=== PATIENT | female | born 1980 | race Caucasian/White ===

== ENCOUNTER 2016-10-20 10:40 | Emergency (ER) | payer OTHER ==
[2016-10-20 10:47] VITALS: BMI 26.5
[2016-10-20] MEDS ORDERED: ACETAMINOPHEN 1000 MG/100 ML VIAL (NON FORMULARY) IVPB ONE (11:01)
[2016-10-20] MEDS ORDERED: SODIUM CHLORIDE 1,000 ML IV STA (11:01)
--- NOTE | 2016-10-20 11:04 | PDOC ---
*Physical Exam - Vital Signs Last Vital Signs Temp Pulse Resp BP Pulse Ox 99.1 F 102 H 20 127/80 100 10/20/16 10:41 10/20/16 10:41 10/20/16 10:41 10/20/16 10:41 10/20/16 10:41
[2016-10-20] MEDS ORDERED: ACETAMINOPHEN INJECTION 100 ML IVPB ONE (11:06)
--- NOTE | 2016-10-20 11:11 | PDOC ---
History of Present Illness - General Chief Complaint: Pain Stated Complaint: HEADACHE, ABD PAIN Time Seen by Provider: 10/20/16 10:55 History Source: Patient Exam Limitations: No Limitations - History of Present Illness Travel History: No Initial Comments: 10/20/16 11:51 36-year-old female presents to the ED with complaints of mild periumbilical cramping associated with intermittent diarrhea intermittent nausea and now with the generalized headache. Patient denies dysuria, recent constipation, recent travel or recent illness. Patient does state feels fatigued and generalized chills. Patient states took nothing for the above and decided come to the ER today although her abdominal pain has significantly subsided along with her diarrhea. Patient also denies medical history recent change in diet, recent change in weight. Timing/Duration: reports: constant Quality: reports: mild, cramping Abdominal Pain Onset Location: reports: periumbilical Pain Radiation: reports: no radiation Activities at Onset: reports: none Aggravating Factors: improves with: None Alleviating Factors: improves with: None Past History - Travel Traveled outside of the country in the last 30 days: No Close contact w/someone who was outside of country & ill: No - Past Medical History Allergies/Adverse Reactions: Allergies Allergy/AdvReac Type Severity Reaction Status Date / Time No Known Allergies Allergy Verified 10/20/16 10:44 Home Medications: Ambulatory Orders NK [No Known Home Medication] 09/27/15 Sulfamethoxazole/Trimethoprim [Bactrim *Ds*] 1 each PO BID #14 tablet 09/27/15 Other medical history: NONE - Psycho/Social/Smoking Cessation Hx Anxiety: No Suicidal Ideation: No Smoking History: Never smoked Hx Alcohol Use: No Drug/Substance Use Hx: No Substance Use Type: None Patient Lives Alone: No Lives with/in: spouse/SO Review of Systems - Review of Systems Able to Perform ROS?: No Constitutional: Yes: Chills, Weakness HEENTM: No: Symptoms Reported Respiratory: No: Symptoms reported Cardiac (ROS): No: Symptoms Reported ABD/GI: Yes: Diarrhea, Nausea, Abdominal cramping. No: Vomiting : No: Symptoms Reported Musculoskeletal: No: Symptoms Reported Integumentary: No: Symptoms Reported Neurological: Yes: Headache *Physical Exam - Vital Signs Last Vital Signs Temp Pulse Resp BP Pulse Ox 99.1 F 102 H 20 127/80 100 10/20/16 10:41 10/20/16 10:41 10/20/16 10:41 10/20/16 10:41 10/20/16 10:41 - Physical Exam General Appearance: Yes: Nourished, Appropriately Dressed. No: Apparent Distress HEENT: positive: ADAN, TMs Normal, Pharynx Normal. negative: Pale Conjunctivae Neck: positive: Supple Respiratory/Chest: positive: Lungs Clear, Normal Breath Sounds. negative: Respiratory Distress, Accessory Muscle Use Cardiovascular: positive: Regular Rhythm, Tachycardia. negative: Murmur Gastrointestinal/Abdominal: positive: Normal Bowel Sounds, Soft. negative: Distended, Guarding, Rebound, Tenderness Musculoskeletal: negative: CVA Tenderness Extremity: positive: Normal Capillary Refill. negative: Pedal Edema Integumentary: positive: Normal Color, Warm, Moist Neurologic: positive: Motor Strength 5/5 (ambulatory) ED Treatment Course - LABORATORY CBC & Chemistry Diagram: 10/20/16 11:00 10/20/16 11:00 Medical Decision Making - Medical Decision Making 10/20/16 11:34 Patient with no past medical history presenting with intermittent diarrhea nausea and abdominal cramping now associated with a frontal headache. Patient arrives with a temperature of 99.2 and heart rate of 102. Patient exam had no acute findings. Patient ordered for labs, urine, IV fluids, IV Tylenol and will reevaluate shortly. 10/20/16 12:15 Laboratory Tests 10/20/16 10/20/16 10/20/16 11:00 11:00 11:45 WBC 9.1 Hgb 13.2 Hct 38.8 Plt Count 174 Neutrophils % 77.4 Sodium 137 Potassium 3.6 Chloride 105 Carbon Dioxide 26 Anion Gap 6 L BUN 6 L Creatinine 0.7 Random Glucose 88 Calcium 8.7 Total Bilirubin 0.6 AST 11 L ALT 31 Lipase 104 Urine Ketones Trace H Urine Blood 1+ H Ur Leukocyte Esterase 1+ H Urine WBC 6 10/20/16 12:17 UPregnancy negative. Patient states feeling much better. Repeat vital stable. Will discharge with Macrobid. *DC/Admit/Observation/Transfer Diagnosis at time of Disposition: Urinary tract infection Qualifiers: Urinary tract infection type: acute cystitis Hematuria presence: without hematuria Qualified Code(s): N30.00 - Acute cystitis without hematuria - Discharge Dispostion Disposition: HOME Condition at time of disposition: Improved - Referrals Referrals: Earlene Garcia MD [Primary Care Provider] - - Patient Instructions Printed Discharge Instructions: DI for Urinary Tract Infection (UTI) Additional Instructions: Please drink plenty of fluids and take antibiotics starting today. May take Motrin or Tylenol for discomfort and/or fever. Please return to ED if symptoms worsen. Otherwise follow-up with your primary care physician.
[2016-10-20 11:26] LABS: BASOPHIL 0.5 % (0-2.0); EOSINOPHIL 0.4 % (0-4.5); MCH 29.5 pg (25.7-33.7); MCHC 33.9 g/dl (32.0-36.0); MEAN PLT VOLUME 8.6 fl (7.5-11.1); NEUTROPHILS 77.4 % (42.8-82.8); PLATELET COUNT 174 K/MM3 (134-434); WHITE BLOOD COUNT 9.1 K/mm3 (4.0-10.0)
[2016-10-20 11:52] LABS: ALBUMIN 3.8 g/dl (3.4-5.0); ALK PHOS 54 U/L (45-117); ANION GAP 6 (8-16); BILIRUBIN,TOTAL 0.6 mg/dL (0.2-1.0); CALCIUM 8.7 mg/dL (8.5-10.1); CO2 26 mmol/L (21-32); CREATININE 0.7 mg/dL (0.55-1.02); GLUCOSE,RANDOM 88 mg/dL (74-106); SGOT/AST 11 U/L (15-37); SGPT/ALT 31 U/L (12-78); TOT PROT 6.7 g/dl (6.4-8.2)
[2016-10-20 11:58] LABS: URINE APPEARANCE CLOUDY; URINE BILIRUBIN NEGATIVE (NEGATIVE); URINE BLOOD 1+ (NEGATIVE); URINE COLOR LTYELLOW; URINE GLUCOSE (UA) NEGATIVE (NEGATIVE); URINE KETONE TRACE (NEGATIVE); URINE NITRITE NEGATIVE (NEGATIVE); URINE PROTEIN NEGATIVE (NEGATIVE); URINE UROBILINOGEN NEGATIVE mg/dL (0.2-1.0)
[2016-10-20 12:02] LABS: URINE LEUK ESTERASE 1+ (NEGATIVE)
[2016-10-20 12:06] LABS: URINE BACTERIA FEW /hpf (NONE SEEN); URINE MUCUS RARE; URINE RBC 1 /hpf (0-3); URINE WBC 6 /hpf (3-5)
[2016-10-20 12:29] VITALS: BP 104/63; PULSE 80; TEMP 98.2
== END 2016-10-20 12:29 | disposition home or self-care (01) ==
LOC: JER 10:40
PROC: 3E033NZ Introduction of Analgesics, Hypnotics, Sedatives into Peripheral Vein, Percutaneous Approach (ICD-10-PCS; principal; 2016-10-20)
DX: N39.0 Urinary tract infection, site not specified (principal); R10.33 Periumbilical pain
CPT/HCPCS: 36415; 80053; 81003; 81015; 83690; 84703; 85025; 87077; 87086; 96374; 99282-25

== ENCOUNTER 2020-06-12 16:04 | Emergency (ER) | payer OTHER ==
[2020-06-12 16:17] VITALS: BP 143/98; PULSE 77; TEMP 98.5; BMI 29.0
[2020-06-12] MEDS ORDERED: ACETAMINOPHEN 500 MG TABLET (FP) PO ONE (16:57)
[2020-06-12] MEDS ORDERED: ACETAMINOPHEN 500 MG TABLET (FP) ONE (16:59)
[2020-06-12] MEDS ORDERED: KETOROLAC TROMETHAMINE 30 MG/1 ML VIAL IM ONE (20:14)
[2020-06-12] MEDS ORDERED: KETOROLAC TROMETHAMINE 30 MG/1 ML VIAL ONE (20:25)
== END 2020-06-12 20:35 | disposition home or self-care (01) ==
LOC: JER 16:04 → JERFT 16:04
PROC: 3E0233Z Introduction of Anti-inflammatory into Muscle, Percutaneous Approach (ICD-10-PCS; principal; 2020-06-12)
DX: G50.1 Atypical facial pain (principal); G44.319 Acute post-traumatic headache, not intractable
CPT/HCPCS: 70450-TC; 70486-TC; 72125-TC; 84703; 99285-25

== ENCOUNTER 2020-12-12 00:23 | Emergency (ER) | payer OTHER ==
[2020-12-12 00:40] VITALS: BMI 26.5
[2020-12-12 01:18] LABS: PH,URINE 7.5 (5.0-8.0); URINE APPEARANCE CLEAR; URINE BILIRUBIN NEGATIVE (NEGATIVE); URINE COLOR YELLOW; URINE GLUCOSE (UA) NEGATIVE (NEGATIVE); URINE KETONE NEGATIVE (NEGATIVE); URINE LEUK ESTERASE NEGATIVE (NEGATIVE); URINE NITRITE NEGATIVE (NEGATIVE); URINE PROTEIN NEGATIVE (NEGATIVE)
[2020-12-12 01:20] LABS: HCG,QUALITATIVE URINE Negative
[2020-12-12] MEDS ORDERED: ACETAMINOPHEN 500 MG TABLET (FP) PO ONE (01:36)
[2020-12-12] MEDS ORDERED: ACETAMINOPHEN 325 MG TABLET (FP) ONE (02:10)
[2020-12-12 02:25] LABS: BASO % 0.9 % (0-2.0); EOS % 1.3 % (0-4.5); HEMATOCRIT 35.5 % (32.4-45.2); HEMOGLOBIN 12.6 GM/dL (10.7-15.3); MCH 30.9 pg (25.7-33.7); MCHC 35.5 g/dl (32.0-36.0); MEAN CELL VOLUME 87.1 fl (80-96); MEAN PLT VOLUME 8.3 fl (7.5-11.1); MONO % 7.7 % (3.8-10.2); NEUT % 54.1 % (42.8-82.8); PLATELET COUNT 212 10^3/uL (134-434); RBC 4.08 M/mm3 (3.60-5.2); RDW 12.9 % (11.6-15.6); WHITE BLOOD COUNT 6.4 K/mm3 (4.0-10.0)
[2020-12-12 03:23] LABS: ALBUMIN 3.8 g/dl (3.4-5.0); BILIRUBIN,TOTAL 0.5 mg/dL (0.2-1); BLOOD UREA NITROGEN 7.8 mg/dL (7-18); CALCIUM 8.7 mg/dL (8.5-10.1); CREATININE 0.6 mg/dL (0.55-1.3); TOT PROT 6.7 g/dl (6.4-8.2)
[2020-12-12 06:27] VITALS: BP 122/66; PULSE 61; TEMP 97.9
== END 2020-12-12 06:55 | disposition home or self-care (01) ==
LOC: JER 00:23
DX: N83.202 Unspecified ovarian cyst, left side (principal)
CPT/HCPCS: 36415; 74177-TC; 76830-TC; 80053; 81003; 84703; 85025; 99285-25

== ENCOUNTER 2022-05-15 18:23 | Emergency (ER) | payer OTHER ==
[2022-05-15 18:53] VITALS: BP 144/84; PULSE 80; RESP 18; TEMP 98.8; BMI 30.2
== END 2022-05-15 19:23 | disposition home or self-care (01) ==
LOC: JERFT 18:23 → JER 18:23 → JERFT 19:23
DX: H69.82 Other specified disorders of Eustachian tube, left ear (principal)
CPT/HCPCS: 99282-25

== ENCOUNTER 2024-04-28 06:15 | Emergency (ER) | payer OTHER ==
[2024-04-28 06:20] VITALS: BMI 32.3
[2024-04-28] MEDS ORDERED: AMOX TR/POT CLAV 875MG/125MG TABLETS (FP) ONE (08:00)
[2024-04-28] MEDS ORDERED: DIPHTH,PERTUSS(ACELL),TET 0.5 ML DISP.SYRIN IM ONE ×2 (08:02→08:22)
[2024-04-28] MEDS: DIPHTH,PERTUSS(ACELL),TET 0.5 ML DISP.SYRIN IM ONE (08:15)
[2024-04-28] MEDS: AMOX TR/POT CLAV 875MG/125MG TABLETS (FP) PO ONE (08:20)
[2024-04-28] MEDS ORDERED: AMPICILLIN NA/SULBACTAM NA 3 GM/100 ML BAG IVPB ONE (09:13)
[2024-04-28] MEDS: AMPICILLIN NA/SULBACTAM NA 3 GM in SODIUM CHLORIDE 100 ML IVPB ONE (09:37)
[2024-04-28 09:52] LABS: BASO % 0.7 % (0-2.0); HEMATOCRIT 28.5 % (32.4-45.2); HEMOGLOBIN 8.8 GM/dL (10.7-15.3); LYMPH % 30.9 % (8-40); MCHC 30.8 g/dl (32.0-36.0); MEAN CELL VOLUME 63.4 fl (80-96); MEAN PLT VOLUME 8.3 fl (7.5-11.1); MONO % 6.8 % (3.8-10.2); NEUT % 60.6 % (42.8-82.8); PLATELET COUNT 315 10^3/uL (134-434); RBC 4.49 M/mm3 (3.60-5.2); RDW 18.9 % (11.6-15.6); WHITE BLOOD COUNT 6.4 K/mm3 (4.0-10.0)
[2024-04-28 09:56] LABS: MCH 19.5 pg (25.7-33.7)
[2024-04-28 10:13] LABS: POTASSIUM 4.2 mmol/L (3.5-5.1)
[2024-04-28 10:17] LABS: ALBUMIN 3.9 g/dl (3.4-5.0)
[2024-04-28 10:18] LABS: BLOOD UREA NITROGEN 9.9 mg/dL (7-18)
[2024-04-28 10:21] LABS: CREATININE 0.5 mg/dL (0.55-1.3)
[2024-04-28 10:22] LABS: BILIRUBIN,TOTAL 0.3 mg/dL (0.2-1); TOT PROT 7.1 g/dl (6.4-8.2)
[2024-04-28 10:48] VITALS: RESP 20
[2024-04-28 11:12] LABS: ANISOCYTOSIS 2+
[2024-04-28] MEDS ORDERED: ACETAMINOPHEN 325 MG TABLET (FP) ONE (11:58)
[2024-04-28] MEDS: ACETAMINOPHEN 500 MG TABLET (FP) PO ONE (12:08)
[2024-04-28 14:51] VITALS: BP 125/77; PULSE 68; TEMP 98.6
== END 2024-04-28 14:45 | disposition short-term general hospital (02) ==
LOC: JER 06:15
PROC: 3E03329 Introduction of Other Anti-infective into Peripheral Vein, Percutaneous Approach (ICD-10-PCS; principal; 2024-04-28)
PROC: 3E0234Z Introduction of Serum, Toxoid and Vaccine into Muscle, Percutaneous Approach (ICD-10-PCS; 2024-04-28)
DX: S51.801A Unspecified open wound of right forearm, initial encounter (principal); Z23 Encounter for immunization; W55.01XA Bitten by cat, initial encounter
CPT/HCPCS: 36415; 73090-TC-RT-FY; 73130-TC-RT-FY; 80053; 84703; 85025; 90471; 90715; 96365; 99285-25